=== PATIENT | female | born 1970 | race Caucasian/White ===

== ENCOUNTER 2016-03-24 20:01 | Emergency (ER) | payer OTHER ==
[~2016-03-24] VITALS: Ht 167.6 cm; Wt 73.9 kg
[~2016-03-24 20:01] MED LIST: CITA10TA8 PO; MULTTAB PO
[2016-03-24 20:06] VITALS: TEMP 37; Ht 167.6 cm; Wt 73.9 kg
[2016-03-24] MEDS ORDERED: IBUP-1050 PO (20:30)
[2016-03-24] MEDS ORDERED: TRAM-10 PO (20:30)
[2016-03-24] MEDS ORDERED: HYDROCODONE/ACETAMOPHEN 5/325MG TAB PO STA (20:34)
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
--- NOTE | 2016-03-24 21:02 | DIAGNOSTIC IMAGING REPORT ---
CT HEAD WITHOUT CONTRAST (CT) CLINICAL HISTORY: Head pain status post trauma COMPARISON STUDY: No previous studies for comparison. TECHNIQUE: Axial CT of the brain is performed from the vertex to the skull base. IV contrast was not administered for this examination. CT DOSE: FINDINGS: No intra or extra-axial mass lesions are visualized. There is no CT evidence of acute cortical infarction. There is no evidence of midline shift. There is no acute hemorrhage. There is a suspected right orbital floor fracture. No additional calvarial fractures are visualized. There is right malar and periorbital edema. There is no evidence of pathologic ventricular dilatation. IMPRESSION: 1. Right malar and periorbital edema 2. Suspected right orbital floor fracture 3. No evidence of acute intracranial injury Electronically signed by: Jose David Landeros M.D. 03/24/2016 9:00 PM Dictated Date/Time: 03/24/2016 8:58 PM
--- NOTE | 2016-03-24 21:07 | DIAGNOSTIC IMAGING REPORT ---
CT FACIAL BONES-MXILLOFAC WITHOUT CT DOSE: 764.02 mGy.cm CLINICAL HISTORY: Facial pain status post trauma COMPARISON STUDY: No previous studies for comparison. TECHNIQUE: Helical images were acquired in the transverse plane. The study was reviewed and analyzed on the independent 3-D workstation. The pterygoid plates appear intact. The zygomatic arches appear intact. The globes appear intact. There is a right nasal bone fracture. There is a fracture the right orbital floor with 2 mm of depression. There is no extraocular muscle entrapment. The mandibular condyles appear intact. There is a nonspecific 8 mm area of bony lysis within the right frontal bone. There is right malar and periorbital edema. There are postsurgical changes involving the left maxillary sinus. IMPRESSION: 1. Nondisplaced right nasal bone fracture 2. Right orbital floor fracture with 2 mm of depression. No evidence of extraocular muscle entrapment Electronically signed by: Jose David Landeros M.D. 03/24/2016 9:05 PM Dictated Date/Time: 03/24/2016 9:00 PM
[2016-03-24] MEDS ORDERED: NORCO 5/325MG HOME PACK PO ONE (21:30)
[2016-03-24] MEDS ORDERED: AMOX500T3 PO (21:39)
[2016-03-24] MEDS ORDERED: HYDR-5688 PO (21:39)
[2016-03-24 22:00] VITALS: BP 136/70; PULSE 74; O2SAT 99
== END 2016-03-24 22:00 | disposition home or self-care (01) ==
LOC: C.EDB 20:02 → C.EDD 22:00
DX: S02.31XA Fracture of orbital floor, right side, initial encounter for closed fracture (principal); S02.2XXA Fracture of nasal bones, initial encounter for closed fracture; W22.09XA Striking against other stationary object, initial encounter; F17.200 Nicotine dependence, unspecified, uncomplicated